=== PATIENT | male | born 1985 | race Caucasian/White ===

== ENCOUNTER 2017-04-20 11:02 | Emergency (ER) | payer MEDICAID ==
[2017-04-20 11:17] VITALS: O2SAT 96
[2017-04-20] MEDS ORDERED: ONDANSETRON DISINTEGRATING 4 MG TAB PO ONE (12:40)
--- NOTE | 2017-04-20 12:42 | EDPHY ---
H & P Stated Complaint: n/v/d yesterday/syncopal event at 6pm/periumbilical pain - Personal History Current Tetanus/Diphtheria Vaccine: Yes - Medical/Surgical History Hx Asthma: No Hx Chronic Respiratory Disease: No Hx Diabetes: No Hx Cardiac Disease: No Hx Renal Disease: No Hx Cirrhosis: No Hx Alcoholism: No Hx HIV/AIDS: No Hx Splenectomy or Spleen Trauma: No Other PMH: denies - Social History Smoking Status: Current some day smoker Time Seen by Provider: 04/20/17 12:28 HPI/ROS: CHIEF COMPLAINT: Vomiting x1 last evening HISTORY OF PRESENT ILLNESS: 32-year-old male generally healthy no history of abdominal surgeries states that last evening at 6:00 p.m. he had sudden onset of nausea, ran to the bathroom to vomit as syncopal episode. No head injury. Later in the evening he had multiple episodes of diarrhea without blood or pus in stool. No abdominal pain currently. He has positive appetite. He has not had anything to eat today because of mild nausea. No testicular pain. No back or flank pain. No chest pain. No fever or chills. No urinary abnormality such as abnormal coloration, increased frequency or dysuria. No abdominal or genitalia trauma REVIEW OF SYSTEMS: A ten point review of systems was performed and is negative with the exception of the items mentioned in the HPI PAST MEDICAL & SURGICAL HISTORY: No pertinent medical or surgical history SOCIAL HISTORY: No alcohol use PHYSICAL EXAM (Prior to examination, patient consented to physical exam, hands were washed and my usual and customary physical exam procedures followed) 1) GENERAL: Well-developed, well-nourished, alert and oriented. Appears to be in no acute distress. he is sitting upright reading a book appears comfortable 2) HEAD: Normocephalic, atraumatic 3) HEENT: Pupils equal, round, reactive to light bilaterally. Sclera anicteric. Nasopharynx, oropharynx, clear, no lesions. Moist mucous membrane 4) NECK: Full range of motion, no meningeal signs. 5) LUNGS: Clear auscultation bilaterally, no wheezes, no rhonchi, no retractions. 6) HEART: Regular rate and rhythm, no murmur, no heave, no gallop. 7) ABDOMEN: No guarding, no rebound, no focal tenderness, negative McBurney's, negative Hopkins's, negative Rovsing's, negative peritoneal sign, no mass. I am unable to elicit any abdominal pain Including right lower quadrant and periumbilical region 8) MUSCULOSKELETAL No peripheral edema or discoloration. 9) BACK: No CVA tenderness. 10) SKIN: No rash, no petechiae. 11) Psychiatric: Patient is oriented X 3, he is calm , cooperative DIFFERENTIAL DIAGNOSIS: My differential diagnosis includes, but is not limited to, acute appendicitis, acute cholecystitis, bowel obstruction, acute pancreatitis, gastritis . The patient understands that this diagnosis is provisional and can never be 100% accurate. This is a partial list of diagnoses considered. These considerations are based on history, physical exam, past history and reassessment. (Fantasma [place]) Constitutional: Initial Vital Signs Temperature (C) 37.1 C 04/20/17 11:14 Heart Rate 71 04/20/17 11:14 Respiratory Rate 18 04/20/17 11:14 Blood Pressure 132/88 H 04/20/17 11:14 O2 Sat (%) 96 04/20/17 11:14 O2 Delivery Mode Room Air Allergies/Adverse Reactions: No Known Allergies Allergy (Unverified 04/20/17 11:13) Home Medications: Medication Instructions Recorded NK [No Known Home Meds] 04/20/17 Medical Decision Making ED Course/Re-evaluation: 12:40 p.m.: Patient's only complaint after initial examination is mild nausea. He denies complaints of abdominal pain I am unable to elicit abdominal pain on exam. Inquired about appendicitis. Given his lack of abdominal pain on examination I think that this is less than likely acutely. Will observe patient for period of time and revaluate. 1:51 p.m.: Patient re-evaluated with serial exams. He has been given oral Zofran and has been observed tolerating drinking fluids. When I examine him at this time he is sitting upright on the bed, reading a book, appears very comfortable. I re-examined his abdomen which is soft no guarding no rebound no McBurney's point pain, no peritoneal sign, negative Hopkins's sign, negative Rovsing's sign. He has no complaints of abdominal pain. I had a lengthy discussion with this patient as he initially inquired about possible appendicitis. I informed him that while I could not fully rule out appendicitis at this time, he has had no further episodes of vomiting since last evening, he is afebrile, he has no subjective abdominal pain and no objective abdominal pain on initial and repeat examination and I therefore think that at this time acute appendicitis is less than likely. Nonetheless he has been informed that early appendicitis is not ruled out. We discussed options including imaging now or return to the ER in 12-24 hours for recheck. He prefers to return to the ER for recheck. I think that this is an appropriate decision Given his current lack of symptoms. I believe the patient to have decision-making capacity. He feels comfortable being discharged. ample opportunity for questions has been provided all questions answered by myself. Usual and customary discharge precautions and instructions provided. ( Fantasma [place]) The patient was evaluated and managed by the physician paperhanger assistant. I have reviewed this chart and I agree with the findings and plan of care as documented , as indicated by my signature. I am the secondary supervising physician. ( Mei Salgado) - Data Points Medications Given: Discontinued Medications Ondansetron HCl (Zofran Odt) 4 mg PO EDNOW ONE Stop: 04/20/17 12:41 Last Admin: 04/20/17 12:43 Dose: 4 mg Departure - Departure Disposition: Home, Routine, Self-Care Clinical Impression: Vomiting Condition: Good Instructions: Acute Nausea and Vomiting (ED) Additional Instructions: Return, to the ER sooner if you develop abdominal pain, fevers, or any other symptoms that concern you Referrals: Return, to the ER in 12 to 24 hours for recheck [Other] - 04/21/17 2:00 am
[2017-04-20 14:12] VITALS: RESP 20; TEMP 98.2
[2017-04-20 14:13] VITALS: BP 127/63
[2017-04-20 14:14] VITALS: PULSE 75
== END 2017-04-20 14:14 | disposition home or self-care (01) ==
DX: R11.10 Vomiting, unspecified (principal); F17.200 Nicotine dependence, unspecified, uncomplicated